=== PATIENT | female | born 1960 | race Caucasian/White ===

== ENCOUNTER 2020-02-15 06:36 | Emergency (ER) | payer BC, OTHER ==
[~2020-02-15] VITALS: Ht 152.4 cm; Wt 97.8 kg
[~2020-02-15 06:36] MED LIST: ASPI325T OR; HYDR25TA6 OR; JANUVIA PO; LISIPOW PO; PRILOSEC OTC PO; SYMB80AE INH; TOPI100T OR; TOPI50TA OR; ZOCO40TA OR
[2020-02-15] MEDS ORDERED: LASI40TA9 PO (06:41)
--- NOTE | 2020-02-15 08:27 | REP ---
LEFT WRIST SERIES: FOUR VIEWS. HISTORY: Left wrist pain. History of a fall. FINDINGS: Four views of the left wrist demonstrate diffuse osteopenia. There is a impacted somewhat comminuted and angulated distal radial fracture with associated soft-tissue swelling. There is 30 degrees of apex volar angulation on lateral radiograph. No definite distal ulnar fracture is seen. There is no visible carpal fracture. IMPRESSION: Impacted fracture of the distal radius with some dorsal displacement and apex palmar angulation. Electronically Signed by Nicho Mccarthy MD 02/15/2020 09:33 A
[2020-02-15 08:51] VITALS: BP 150/90
[2020-02-15] MEDS ORDERED: NORC1TAB7 PO (09:48)
== END 2020-02-15 09:09 | disposition home or self-care (01) ==
LOC: M ED 06:36
DX: S52.502A Unspecified fracture of the lower end of left radius, initial encounter for closed fracture (principal); W01.0XXA Fall on same level from slipping, tripping and stumbling without subsequent striking against object, initial encounter; Y92.9 Unspecified place or not applicable; E11.9 Type 2 diabetes mellitus without complications; E78.5 Hyperlipidemia, unspecified; I10 Essential (primary) hypertension; K21.9 Gastro-esophageal reflux disease without esophagitis; J45.909 Unspecified asthma, uncomplicated; Z85.42 Personal history of malignant neoplasm of other parts of uterus; Z98.84 Bariatric surgery status; Z88.5 Allergy status to narcotic agent; Z79.899 Other long term (current) drug therapy

== ENCOUNTER 2020-02-21 14:32 | Day surgery (SDC) | payer BC ==
[~2020-02-21] VITALS: Ht 152.4 cm; Wt 95.6 kg
[~2020-02-21 14:32] MED LIST changes: +LASI40TA9 PO; +LIDOCAINE 1% MDV 20ML VIAL SQ PRN; +NORC1TAB7 PO; +ceFAZolin SOD 2 GM in IV 1 EA IV ONE
[2020-02-21] MEDS ORDERED: dexameTHASONE 10MG/1ML VIAL PRES.FREE (J1100 PER 1MG) ONE (14:33)
[2020-02-21] MEDS ORDERED: ROPIvacaine 0.5% 30ML INJECTION (J2795 PER 1MG) ONE (14:33)
[2020-02-21] MEDS ORDERED: MIDAZOLAM INJ 2MG/2ML VIAL (J2250 PER 1MG) As Ordered ONE ×2 (15:00→17:43)
[2020-02-21] MEDS ORDERED: fentaNYL 100 MCG/2 ML INJECTION (J3010) As Ordered ONE (15:00)
[2020-02-21] MEDS ORDERED: LR 1,000 ML IV ONE (16:00)
[2020-02-21] MEDS: MIDAZOLAM INJ 2MG/2ML VIAL (J2250 PER 1MG) IV SCH ×2 (16:07→16:13)
[2020-02-21] MEDS ORDERED: hydrALAZINE 20MG/ML 1ML VIAL (J0360 PER 20MG) As Ordered ONE (16:32)
[2020-02-21] MEDS: hydrALAZINE 20MG/ML 1ML VIAL (J0360 PER 20MG) IV SCH ×3 (16:37→17:03)
[2020-02-21] MEDS ORDERED: fentaNYL 100 MCG/2 ML INJECTION (J3010) IV SCH (16:45)
[2020-02-21] MEDS ORDERED: BUPIVACAINE/EPIN 0.25% 30 ML VIAL As Ordered ONE (17:02)
[2020-02-21 17:03] VITALS: BP 179/95
[2020-02-21] MEDS ORDERED: propofoL 200 MG/20 ML VIAL As Ordered ONE (17:43)
[2020-02-21] MEDS ORDERED: LIDOCAINE 2% 100MG/5ML SDV (FOR ANES.) As Ordered ONE (17:43)
[2020-02-21] MEDS ORDERED: ONDANSETRON 4MG/2ML VIAL (J2405 PER 1MG) As Ordered ONE (17:43)
[2020-02-21] MEDS ORDERED: dexameTHASONE 4 MG/ML 1ML VIAL (J1100 PER 1MG) As Ordered ONE (17:43)
[2020-02-21] MEDS ORDERED: fentaNYL 250 MCG/5 ML INJECTION (J3010) As Ordered ONE (18:34)
[2020-02-21] MEDS ORDERED: ONDANSETRON 4MG/2ML VIAL (J2405 PER 1MG) IV PRN (18:45)
[2020-02-21] MEDS ORDERED: LR 1,000 ML IV SCH (18:45)
[2020-02-21] MEDS ORDERED: fentaNYL 100 MCG/2 ML INJECTION (J3010) IV PRN (18:45)
[2020-02-21] MEDS ORDERED: oxyCODONE 5MG TAB PO PRN ×2 (18:45→19:46)
--- NOTE | 2020-02-21 18:59 | REP ---
HISTORY: Status post ORIF distal radial fracture previously described on a wrist series of 02/15/2020. Three spot views were obtained using a portable C-Arm device in my [place]. 68 seconds of fluoroscopy time was provided Dr. Saunders for the procedure. There is an internal fixation plate with multiple affixing screws affixing the previously described distal radial fracture. None of the screws breech the radiocarpal joint space. Electronically Signed by Tim Thurman DO 02/21/2020 07:23 P
[2020-02-21 20:15] VITALS: BP 147/66
--- NOTE | 2020-02-21 22:09 | RO ---
DATE OF PROCEDURE: 02/21/2020 PREPROCEDURE DIAGNOSIS: Left distal radius interarticular distal radius fracture. POSTPROCEDURE DIAGNOSIS: Left distal radius interarticular distal radius fracture. PROCEDURE: Open reduction internal fixation of left distal radius interarticular comminuted distal radius fracture. SURGEON: Jewel Saunders MD PHARMACOLOGIST: None. ANESTHESIA: PREOPERATIVE ANTIBIOTICS: None. TOURNIQUET TIME: 36 minutes. BLOOD LOSS: Minimal. INDICATIONS: A 60-year-old female that had a trip and fall and suffered left comminuted interarticular distal radius fracture. Initially the decision was made for nonoperative treatment. She underwent a closed reduction and casting; however, three days later, due to the tubular nature of her arm, the cast had slipped off and we had already lost our reduction. We discussed continuing nonoperative form of treatment in the form of a long-arm cast; however, given the patient's body habitus, there was concern that this would not hold our reduction as she had already slipped back to 12 degrees dorsally angulated. Patient also was very hesitant with the fact about having a long-arm cast. We discussed operative intervention, and the patient decided to proceed with operative intervention. We discussed the risks and benefits associated with including, but not limited to, infection, damage to surrounding structures, incomplete relief, malunion, nonunion, and need for further surgery, and patient wished to proceed. DESCRIPTION OF PROCEDURE: The patient was brought back to the operating room (OR) in the supine position, underwent general anesthesia at which point the left arm was prepped and draped in the usual fashion. We then had a time-out confirming site, side and surgery. Once all in agreement, we elevated the tourniquet up with the Esmarch up to 250 mmHg. We then made a longitudinal incision along FCR, sharply dissected through subcutaneous tissue, identified FCR sheath. We entered the sheath and retracted FCR tendon radially, at which point we dissected deep through the sheath exposing flexor hallucis longus and retracting it ulnarly, exposing pronator quadratus. This was lifted off of the sheath exposing the fracture site, at which point we also released brachial radialis off the styloid. We then used a combination of direct and indirect reduction techniques with the aid of manual manipulation, freer and then used a 1.6 K-wire to pin the distal radius to the shaft. We confirmed our reduction on AP and lateral films. At this point, we had reduced most of the volar tilt but not completely, but we were very happy with the radial height and inclination. Therefore, we selected our four-hole plate and applied it distally with four locking screws after initially locked into place with a singular locking screw, we applied a [id number] reduction clamp to squeeze the scaphoid and lunate before applying the next three distal locking screws. Once then the distal aspect of the radius was one block, we reduced the plate to the bone to restore the rest of our volar inclination. This was held in place with the [id number] reduction clamp, and we confirmed on AP and lateral films that we were happy with this reduction, and we placed a cortical screw within the oblong hole. We then placed two more cortical screws in the proximal holes of the plates, having three in total. We confirmed our reduction and alignment on AP, lateral. We were very happy with the religious of our volar tilt along with radial height and inclination. We irrigated the wound thoroughly, ensured no screws were in the joints through AP, lateral and oblique films, both the radiocarpal and radioulnar joints. Irrigated the wound thoroughly, closed subcutaneously with #3-0 Vicryl, skin with #3-0 nylon, Adaptic gauze, sterile Webril and placed a dorsal wrist splint in place. The patient was awakened and taken to the post-anesthesia care unit (PACU) in stable condition. POSTOPERATIVE PLAN: The patient will work on pain control and finger range of motion. Will see her at 2 weeks for suture removal and conversion to a removable splint.
== END 2020-02-21 20:15 | disposition home or self-care (01) ==
LOC: M SDC 14:32
PROVIDERS: ATTEND Orthopaedic Surgery Hand Surgery
DX: S52.572A Other intraarticular fracture of lower end of left radius, initial encounter for closed fracture (principal); W19.XXXA Unspecified fall, initial encounter; Y92.89 Other specified places as the place of occurrence of the external cause; Y93.9 Activity, unspecified; Y99.9 Unspecified external cause status; I10 Essential (primary) hypertension; Z79.899 Other long term (current) drug therapy
CPT/HCPCS: 25608; 64415; 76000; C1713; J0360; J0690; J1100; J2250; J2405; J2795; J3010

== ENCOUNTER → 2022-04-22 | Outpatient (CLI) | payer BC ==
[~2022-04-22] MED LIST changes: -LIDOCAINE 1% MDV 20ML VIAL SQ PRN; -ceFAZolin SOD 2 GM in IV 1 EA IV ONE
== END ==
LOC: M WUC 11:33
PROVIDERS: ATTEND Family Medicine
DX: R06.02 Shortness of breath (principal)

== ENCOUNTER → 2022-05-20 | Outpatient (CLI) | payer BC ==
[~2022-05-20] MED LIST changes: +PROHANCE 279.3MG/ML 15ML VIAL As Ordered ONE; +PROHANCE 279.3MG/ML 5ML VIAL As Ordered ONE
== END ==
LOC: M RAD 16:13
PROVIDERS: ATTEND Surgery
DX: C34.90 Malignant neoplasm of unspecified part of unspecified bronchus or lung (principal)
CPT/HCPCS: 70553; A9576

== ENCOUNTER 2022-05-24 09:36 | Emergency (ER) | payer BC ==
[~2022-05-24] VITALS: Ht 152.4 cm; Wt 85.3 kg
[~2022-05-24 09:36] MED LIST changes: -PROHANCE 279.3MG/ML 15ML VIAL As Ordered ONE; -PROHANCE 279.3MG/ML 5ML VIAL As Ordered ONE
[2022-05-24] MEDS ORDERED: ECOT81TA5 PO (09:59)
[2022-05-24] MEDS ORDERED: ALBU8.5H (09:59)
[2022-05-24] MEDS ORDERED: FAMO40TA3 (09:59)
[2022-05-24] MEDS ORDERED: FURO40TA2 (09:59)
[2022-05-24 10:55] LABS: BASO % 0.6 % (0.0-1.0); EOS % 0.5 % (0.0-3.0); HEMATOCRIT 42.4 % (36.0-47.0); HEMOGLOBIN 13.5 g/dl (12.0-15.5); LYMPH # 1.4 10^3/uL (1.5-5.0); LYMPH % 21.5 % (24.0-44.0); MEAN CORPUSCULAR HEMOGLOBIN 27.2 pg (27.0-33.0); MEAN CORPUSCULAR HGB CONC 31.8 g/dl (32.0-36.5); MEAN CORPUSCULAR VOLUME 85.3 fl (80.0-96.0); MONO # 0.4 10^3/uL (0.0-0.8); MONO % 5.7 % (2.0-8.0); NEUTROPHILS # 4.6 10^3/uL (1.5-8.5); NEUTROPHILS % 71.4 % (36.0-66.0); PLATELET COUNT, AUTOMATED 342 10^3/uL (150-450); RED BLOOD COUNT 4.97 10^6/uL (4.00-5.40); WHITE BLOOD COUNT 6.5 10^3/uL (4.0-10.0)
[2022-05-24 11:01] LABS: VENOUS BASE EXCESS 4.6 (-2.0-2.0); VENOUS HCO3 30.6 MEQ/L (23.0-27.0); VENOUS O2 SATURATION 58.7 % (60.0-80.0); VENOUS PARTIAL PRESSURE CO2 50.7 mmHg (38.0-50.0); VENOUS PARTIAL PRESSURE O2 30.2 mmHg (30.0-50.0); VENOUS PH 7.398 UNITS (7.330-7.430); VENOUS STANDARD HCO3 27.5 MEQ/L; VENOUS TOTAL CO2 32.1 MEQ/L (24.0-28.0)
[2022-05-24 11:31] LABS: ALBUMIN 3.4 GM/DL (3.2-5.2); ALT/SGPT 15 U/L (12-78); BILIRUBIN,DIRECT 0.1 MG/DL (0.0-0.2); BILIRUBIN,TOTAL 0.4 MG/DL (0.2-1.0); BLOOD UREA NITROGEN 11 MG/DL (7-18); CALCIUM LEVEL 9.4 MG/DL (8.8-10.2); CARBON DIOXIDE LEVEL 30 MEQ/L (21-32); CHLORIDE LEVEL 106 MEQ/L (98-107); CREATININE FOR GFR 0.64 MG/DL (0.55-1.30); GLOMERULAR FILTRATION RATE > 60.0 (>45); GLUCOSE, FASTING 108 MG/DL (70-100); NT-PRO BNP 53 PG/ML (<125); POTASSIUM SERUM 3.8 MEQ/L (3.5-5.1); SODIUM LEVEL 142 MEQ/L (136-145); TOTAL PROTEIN 7.2 GM/DL (6.4-8.2)
[2022-05-24 11:32] LABS: CK-MB VALUE MASS 1.1 NG/ML (<3.6); MB/CK RELATIVE INDEX 2.04 (< OR =4)
[2022-05-24 12:20] LABS: CK-MB VALUE MASS 1.2 NG/ML (<3.6); MB/CK RELATIVE INDEX 1.9 (< OR =4)
[2022-05-24 14:02] VITALS: O2SAT 94
[2022-05-24 15:00] VITALS: BP 184/84
== END 2022-05-24 15:07 | disposition home or self-care (01) ==
LOC: M ED 09:36
DX: R06.02 Shortness of breath (principal); R91.8 Other nonspecific abnormal finding of lung field; R20.2 Paresthesia of skin; K21.9 Gastro-esophageal reflux disease without esophagitis; E11.9 Type 2 diabetes mellitus without complications; I10 Essential (primary) hypertension; E78.5 Hyperlipidemia, unspecified; Z87.891 Personal history of nicotine dependence; Z88.5 Allergy status to narcotic agent; Z79.51 Long term (current) use of inhaled steroids; Z79.82 Long term (current) use of aspirin

== ENCOUNTER → 2022-06-14 | Outpatient (CLI) | payer BC ==
[~2022-06-14] MED LIST changes: +ALBU8.5H; +ECOT81TA5 PO; +FAMO40TA3; +FURO40TA2
== END ==
LOC: M PLARAD 10:21
PROVIDERS: ATTEND Surgery
DX: C34.12 Malignant neoplasm of upper lobe, left bronchus or lung (principal); R91.1 Solitary pulmonary nodule
CPT/HCPCS: 78815; A9552

== ENCOUNTER → 2023-10-21 | Outpatient (CLI) | payer OTHER ==
[~2023-10-21] MED LIST changes: +PROHANCE 279.3MG/ML 15ML VIAL As Ordered ONE
== END ==
LOC: M RAD 08:00
PROVIDERS: ATTEND Radiology Radiation Oncology
DX: C34.12 Malignant neoplasm of upper lobe, left bronchus or lung (principal)
CPT/HCPCS: 70553; A9576

== ENCOUNTER 2024-01-10 12:54 | Emergency (ER) | payer MEDICARE, OTHER ==
[~2024-01-10] VITALS: Ht 152.4 cm; Wt 58.7 kg
[~2024-01-10 12:54] MED LIST changes: -PROHANCE 279.3MG/ML 15ML VIAL As Ordered ONE
[2024-01-10 13:01] VITALS: BP 172/78; TEMP 98.9; O2SAT 98
== END 2024-01-10 16:38 | disposition left against medical advice (07) ==
LOC: M ED 12:54
DX: Z53.21 Procedure and treatment not carried out due to patient leaving prior to being seen by health care provider (principal)

== ENCOUNTER → 2024-02-16 | Outpatient (REF) | payer MEDICARE, OTHER, MEDICAID | LOC: M SFHCWAGY 13:06 | PROVIDERS: ATTEND Nurse Practitioner Family | DX: Z12.72 Encounter for screening for malignant neoplasm of vagina (principal) | CPT/HCPCS: 87624; G0123 ==

== ENCOUNTER → 2024-07-27 | Outpatient (CLI) | payer MEDICARE, OTHER | LOC: M WHC 07:03 | PROVIDERS: ATTEND Physician Assistant Medical | DX: E04.1 Nontoxic single thyroid nodule (principal) ==

== ENCOUNTER → 2025-05-22 | Outpatient (CLI) | payer MEDICARE | LOC: M RAD 07:31 | PROVIDERS: ATTEND Internal Medicine Pulmonary Disease | DX: R91.8 Other nonspecific abnormal finding of lung field (principal) ==